=== PATIENT | male | born 1955 | race Caucasian/White ===

== ENCOUNTER 2016-11-12 17:29 | Inpatient (IN) | payer MEDICAID, MEDICARE, OTHER ==
[~2016-11-12] VITALS: Ht 172.7 cm; Wt 58.3 kg
[~2016-11-12 17:29] MED LIST: ACET500C5 PO; ARIP2TAB8 PO; BUDE9TAB PO; CEPH-443 PO; CIPR500T4 PO; ESCI20TA PO; IMO2 PO; METR500T PO; MTF1000T PO; OMEP20CA16 PO
[2016-11-12] MEDS ORDERED: DEXTROSE 50% 50 ML SYRINGE IV STA (17:35)
[2016-11-12] MEDS ORDERED: DEXTROSE 5%-0.9% NACL 1,000 ML IV STA (17:35)
[2016-11-12 18:18] LABS: BASOPHIL # 0.1 10^3/ul (0.0-0.1); BASOPHILS % 0.7 % (0.0-2.0); EOSINOPHILS % 0.1 % (0.0-7.0); HEMATOCRIT 37.5 % (42.0-52.0); HEMOGLOBIN 12.5 g/dl (14.0-18.0); LYMPHOCYTES # 0.9 10^3/ul (0.8-2.9); LYMPHOCYTES % 8.2 % (15.0-51.0); MEAN CORPUSCULAR HEMOGLOBIN 30.7 pg (29.0-33.0); MEAN CORPUSCULAR HGB CONC 33.4 g/dl (32.0-37.0); MEAN PLATELET VOLUME 7.4 fl (7.4-10.4); MONOCYTE # 0.6 10^3/ul (0.3-0.9); MONOCYTES % 5.5 % (0.0-11.0); NEUTROPHIL # 9.6 10^3/ul (1.6-7.5); NEUTROPHILS % 85.5 % (39.0-77.0); PLATELET COUNT 507 10^3/UL (140-440); RED BLOOD COUNT 4.08 10^6/ul (4.70-6.10); RED CELL DISTRIBUTION WIDTH 13.7 % (11.5-14.5); UNCORRECTED WBC 11.2 10^3/ul (4.8-10.8); WHITE BLOOD COUNT 11.2 10^3/ul (4.8-10.8)
[2016-11-12 18:24] LABS: CONDITION 1
[2016-11-12] MEDS ORDERED: QUET50TA22 PO (18:49)
[2016-11-12] MEDS ORDERED: PRED10TA PO (18:50)
[2016-11-12] MEDS ORDERED: LORA1TAB PO (18:50)
[2016-11-12] MEDS ORDERED: METF500T4 PO (18:51)
[2016-11-12] MEDS ORDERED: GLIM2TAB PO (18:51)
[2016-11-12] MEDS ORDERED: MESA0.372 PO (18:52)
[2016-11-12] MEDS ORDERED: ALBU18HF INHALATION (18:53)
[2016-11-12 19:19] LABS: CHLORIDE 99 mmol/L (97-110)
[2016-11-12 19:20] LABS: POTASSIUM 3.7 mmol/L (3.5-5.1); SODIUM 139 mmol/L (135-144)
[2016-11-12 19:22] LABS: CREATININE 0.97 mg/dl (0.61-1.24)
[2016-11-12 19:23] LABS: ANION GAP 16 (8-16); BLOOD UREA NITROGEN 24 mg/dl (7-20); CARBON DIOXIDE 28 mmol/L (21-31); GLUCOSE 70 mg/dl (70-220)
[2016-11-12 19:34] LABS: TROPONIN-I < 0.012 ng/ml (0.00-0.12)
--- NOTE | 2016-11-12 20:52 | ERD ---
ER Documentation Chief Complaint Date/Time DATE: 11/12/16 TIME: 20:50 Chief Complaint R39 FROM [facility], LOW BLOOD SUGAR 37 HPI Patient is a 61-year-old male with diabetes who presents with low blood sugar. The patient was given glucagon and juice by paramedics but is still hypoglycemic. The patient was brought in by ambulance. The patient came from a [facility] facility. The patient says that he has had "diarrhea for a long time". He has no other complaints. Upon review of old medical records this is the patient's fourth visit to the ER since 2014. He does not know the name of his primary doctor. ROS All systems reviewed and are negative except as per history of present illness. Medications Home Meds Reported Medications Albuterol Sulfate* (Ventolin HFA*) 18 Gm Hfa.aer.ad, 2 PUFF INHALATION Q4H, #1 INHALER 11/12/16 Mesalamine* (Apriso*) 0.375 Gm Cap.sr.24h, 1.5 GM PO BID, CAP 11/12/16 Glimepiride* (Glimepiride*) 2 Mg Tablet, 2 MG PO WITH BREAKFAST, TAB 11/12/16 Metformin* (Glucophage*) 500 Mg Tab, 500 MG PO WITH LUNCH DINNER, #60 TAB 11/12/16 Prednisone* (Prednisone*) 10 Mg Tab, 10 MG PO DAILY, TAB 11/12/16 Lorazepam* (Lorazepam*) 1 Mg Tablet, 1 MG PO HS Y for ANXIETY, #30 TAB 11/12/16 Quetiapine Fumarate* (Quetiapine Fumarate*) 50 Mg Tablet, 50 MG PO HS, TAB 11/12/16 Escitalopram Oxalate* (Lexapro*) 20 Mg Tablet, 20 MG PO QPM, TAB 08/14/15 Discontinued Reported Medications Loperamide Hcl* (Loperamide Hcl*) 2 Mg Cap, 2 MG PO TID Y for DIARRHEA, CAP 08/24/15 Budesonide (UCERIS) 9 Mg Tabdr...er, 9 MG PO DAILY 08/14/15 Discontinued Scripts Cephalexin* (Keflex*) 500 Mg Capsule, 500 MG PO TID for 5 Days, CAP Prov:TAISHA MARIANO DO 11/28/15 Omeprazole* (Omeprazole*) 20 Mg Capsule.dr, 20 MG PO BID, #60 CAP Prov:NAGHDECHI,KENIA MD 08/25/15 Aripiprazole* (Abilify*) 2 Mg Tablet, 2 MG PO DAILY, #30 TAB Prov:KENIA JENNNIGS MD 08/25/15 Metformin* (Glucophage*) 1,000 Mg Tablet, 1000 MG PO BID, #60 TAB Prov:KENIA JENNINGS MD 08/25/15 Acetaminophen* (Tylophen*) 500 Mg Capsule, 500 MG PO Q6H Y for PAIN for 20 Days , TAB Prov:RAINA KAUR MD 08/19/15 Metronidazole* (Flagyl*) 500 Mg Tab, 500 MG PO Q8 for 8 Days Prov:RAINA KAUR MD 08/19/15 Ciprofloxacin Hcl* (Ciprofloxacin Hcl*) 500 Mg Tab, 500 MG PO BID@06,18 for 8 Days Prov:RAINA KAUR MD 08/19/15 Allergies Allergies: Coded Allergies: No Known Allergy (Unverified , 11/12/16) PMhx/Soc History of Surgery: No Anesthesia Reaction: No Hx Neurological Disorder: No Hx Respiratory Disorders: No Hx Cardiac Disorders: Yes (HTN) Hx Psychiatric Problems: Yes (depression) Hx Miscellaneous Medical Probl: Yes (ULCERATIVE COLITIS, DIABETES) Hx Alcohol Use: No Hx Substance Use: No Hx Tobacco Use: Yes Smoking Status: Current every day smoker FmHx Family History: No diabetes Physical Exam Vitals Vital Signs Date Time Temp Pulse Resp B/P Pulse Ox O2 Delivery O2 Flow Rate FiO2 11/12/16 18:22 66 18 125/80 100 Room Air 11/12/16 18:00 98.7 63 18 125/79 100 Physical Exam Const: Confused Head: Atraumatic Eyes: Normal Conjunctiva ENT: Normal External Ears, Nose and Mouth. Neck: Full range of motion..~ No meningismus. Resp: Clear to auscultation bilaterally Cardio: Regular rate and rhythm, no murmurs Abd: Soft, non tender, non distended. Normal bowel sounds Skin: No petechiae or rashes Back: No midline or flank tenderness Ext: No cyanosis, or edema Neur: Awake but confused Result Diagram: 11/12/16 2396 11/12/16 4866 Results 24 hrs Laboratory Tests Test 11/12/16 17:34 11/12/16 17:56 11/12/16 18:21 Bedside Glucose 41mg/dL 111mg/dL Anion Gap 16 Basophils # 0.110^3/ul Basophils % 0.7% Blood Morphology Comment Blood Urea Nitrogen 24mg/dl Calcium Level 9.0mg/dl Carbon Dioxide Level 28mmol/L Chloride Level 99mmol/L Creatinine 0.97mg/dl Eosinophils # 0.010^3/ul Eosinophils % 0.1% Glucose Level 70mg/dl Hematocrit 37.5% Hemoglobin 12.5g/dl Lymphocytes # 0.910^3/ul Lymphocytes % 8.2% Mean Corpuscular Hemoglobin 30.7pg Mean Corpuscular Hemoglobin Concent 33.4g/dl Mean Corpuscular Volume 92.0fl Mean Platelet Volume 7.4fl Monocytes # 0.610^3/ul Monocytes % 5.5% Neutrophils # 9.610^3/ul Neutrophils % 85.5% Nucleated Red Blood Cells # 0.010^3/ul Nucleated Red Blood Cells % 0.0/100WBC Platelet Count 99429^3/UL Potassium Level 3.7mmol/L Red Blood Count 4.0810^6/ul Red Cell Distribution Width 13.7% Sodium Level 139mmol/L Troponin I < 0.012ng/ml White Blood Count 11.210^3/ul Current Medications Medications (Trade) Dose Ordered Sig/Yung Route PRN Reason Start Time Stop Time Status Last Admin Dose Admin Dextrose 50 ml 50 ml ONCE STAT IV 11/12/16 17:35 11/12/16 17:37 DC 11/12/16 17:57 Dextrose/Sodium Chloride (D5-NS) 1,000 ml @ 200 mls/hr Q5H STAT IV 11/12/16 17:35 11/12/16 22:34 11/12/16 17:57 Ondansetron HCl (Zofran Inj) 4 mg BRIDGE ORDER PRN IV NAUSEA AND/OR VOMITING 11/12/16 21:00 11/13/16 20:59 Acetaminophen (Tylenol Tab) 650 mg ER BRIDGE PRN PO MILD PAIN/FEVER 11/12/16 21:00 11/13/16 20:59 Procedures/MDM EKG read by me: Rate/Rhythm: Right bundle branch block a rate of 62 Intervals: Normal Impression: Right bundle branch block without evidence of ischemia Patient is a 61-year-old male who presents with hypoglycemia. The patient is on metformin and glimepiride and I am concerned about persistent hypoglycemia given the oral hypoglycemics. The patient was still hypoglycemic even after juice and glucagon by paramedics. The patient will be admitted to the care of Dr. Kaur from the panel team as he has [employer] insurance. The patient will be admitted to a medical surgical bed. The patient understands the plan and is okay for admission at this time. At this point I see no signs of serious bacterial infection. Departure Diagnosis: Primary Impression: Hypoglycemia Additional Impression: Anemia Anemia type: unspecified type Qualified Code: D64.9 - Anemia, unspecified type Condition: DORI Butcher MD Nov 12, 2016 20:52
[2016-11-12] MEDS ORDERED: ACETAMINOPHEN 325 MG TAB PO PRN ×2 (21:00→23:30)
[2016-11-12] MEDS ORDERED: ONDANSETRON 4 MG INJ IV PRN ×2 (21:00→23:30)
[2016-11-12 22:10] VITALS: BP 129/75; PULSE 58; RESP 18
[2016-11-12 22:38] VITALS: Ht 172.7 cm; Wt 58.3 kg
[2016-11-12] MEDS ORDERED: MESALAMINE 1.5 GM XX SCH (23:30)
[2016-11-12] MEDS ORDERED: LORAZEPAM 1 MG TAB PO PRN (23:30)
[2016-11-12] MEDS ORDERED: ALBUTEROL HFA 8 GM INHALER INH PRN (23:30)
[2016-11-13] MEDS: ACCUCHECK XX SCH ×4 (00:35→18:20)
[2016-11-13 05:14] LABS: ALBUMIN 3.7 g/dl (3.3-4.9); POTASSIUM 3.9 mmol/L (3.5-5.1)
[2016-11-13 05:16] LABS: CREATININE 0.85 mg/dl (0.61-1.24)
[2016-11-13 05:17] LABS: ALBUMIN/GLOBULIN RATIO 1.02; BILIRUBIN,INDIRECT 0.1 mg/dl (0-1.1); BILIRUBIN,TOTAL 0.1 mg/dl (0.2-1.3); CALCIUM 9.1 mg/dl (8.4-10.2); TOTAL PROTEIN 7.3 g/dl (6.1-8.1)
[2016-11-13 05:32] LABS: BASOPHILS % 0.2 % (0.0-2.0); EOSINOPHILS # 0.1 10^3/ul (0.0-0.5); EOSINOPHILS % 0.9 % (0.0-7.0); HEMATOCRIT 40.8 % (42.0-52.0); HEMOGLOBIN 13.6 g/dl (14.0-18.0); LYMPHOCYTES # 0.8 10^3/ul (0.8-2.9); LYMPHOCYTES % 6.3 % (15.0-51.0); MEAN CORPUSCULAR HEMOGLOBIN 30.7 pg (29.0-33.0); MEAN CORPUSCULAR HGB CONC 33.4 g/dl (32.0-37.0); MEAN CORPUSCULAR VOLUME 91.9 fl (82.0-101.0); MEAN PLATELET VOLUME 7.6 fl (7.4-10.4); MONOCYTE # 0.4 10^3/ul (0.3-0.9); MONOCYTES % 3.4 % (0.0-11.0); NEUTROPHIL # 11.5 10^3/ul (1.6-7.5); NEUTROPHILS % 89.2 % (39.0-77.0); PLATELET COUNT 432 10^3/UL (140-440); RED BLOOD COUNT 4.44 10^6/ul (4.70-6.10); UNCORRECTED WBC 12.9 10^3/ul (4.8-10.8); WHITE BLOOD COUNT 12.9 10^3/ul (4.8-10.8)
[2016-11-13 06:11] LABS: CONDITION 1
--- NOTE | 2016-11-13 06:52 | HP ---
DATE OF ADMISSION: 11/12/2016 TIME SEEN: 2300 CHIEF COMPLAINT: Low blood sugar. HISTORY OF PRESENT ILLNESS: The patient is a 61-year-old male with a history of ulcerative colitis, diabetes, anemia of chronic disease, C. difficile colitis, depression, paranoia/delusion, urinary t ract infection and treatment/medication noncompliance who was sent from [facility] for a blood glucose of 37. The patient was given some juice and hamburger and subsequently his blood glucose shows some improvement. When EMS arrived, he was given Glucagon but he refused in sertion of IV an line. Currently, the patient does not have any complaint. He is oriented. Denied headache, visual disturbance, lightheadedness. Of note, the patient was admitted recently and he w as actually discharged by myself about 6 weeks ago after he initially presented with diarrhea. At t hat time, he refused a colonoscopy but infectious workup was positive for C. diff. He was treated w ith Flagyl and also was treated with mesalamine for his ulcerative colitis. He was also diagnosed w ith E. coli and urinary tract infection. His diarrhea improved prior to discharge, but did not comp letely resolve and that is probably in part due to the fact that he was noncompliant with his medica tion. When the patient presented to the ER today, his initial vitals were unremarkable. Laboratory value shows a WBC of 11.2, hemoglobin 12.5, platelet count 507. His initial point of care glucose was 41. He was given D50 and since then his blood glucose has been in the 70s. Note that the patie nt is on glimepiride and metformin for his diabetes. REVIEW OF SYSTEMS: Negative except as mentioned in HPI. PAST MEDICAL HISTORY: As per HPI. PAST SURGICAL HISTORY: Nose surgery and tonsillectomy. SOCIAL HISTORY: Positive for tobacco use and alcohol use. ALLERGIES: NO KNOWN DRUG ALLERGIES. HOME MEDICATIONS: 1. Albuterol. 2. Lexapro. 3. Ativan. 4. Seroquel. 5. Mesalamine. 6. Glimepiride. 7. Metformin. 8. Prednisone. PHYSICAL EXAMINATION: VITAL SIGNS: Stable. GENERAL: No acute distress, answering questions appropriately. HEENT: No obvious head deformity. Pupils are equal and reactive to light. Extraocular muscles int act. CARDIOVASCULAR: Regular rate and rhythm with no extra sounds. LUNGS: Clear. ABDOMEN: Soft, nontender, nondistended. Positive bowel sounds. EXTREMITIES: No edema. NEUROLOGIC: No focal deficits. LABORATORY: Pertinent positives as mentioned in the HPI. IMPRESSION: 1. Asymptomatic hypoglycemia, likely secondary to sulfonylurea. Currently improved. 2. History of ulcerative colitis. 3. History of recently diagnosed Clostridium difficile colitis diarrhea. H 4. History of diabetes. 5. History of depression. 6. History of noncompliance. PLAN: He is going to continue to be monitored, especially his blood glucose. He will be placed on IV fluids with dextrose. We will resume his diabetic diet. We will hold insulin and obviously his home oral diabetic medications. We will continue the rest of his home medication with adjustment as needed. Further workup and management per clinical course. Dictated By: RAINA DA SILVA/CARLOS Conf#: [id number] DID#: [id number]
[2016-11-13] MEDS ORDERED: DEXTROSE 50% 50 ML SYRINGE IV ONE (07:00)
[2016-11-13] MEDS ORDERED: DEXTROSE 5%-0.45% NACL 1,000 ML IV SCH (07:00)
[2016-11-13 08:31] VITALS: BP 134/76; RESP 20
[2016-11-13] MEDS: predniSONE 10 MG TAB PO SCH (08:50)
[2016-11-13 15:53] LABS: ADD UMIC YES; URINE BILIRUBIN (Dip) NEGATIVE (NEGATIVE); URINE BLOOD (Dip) 3+ (NEGATIVE); URINE COLOR LT. YELLOW (YELLOW); URINE KETONES (Dip) NEGATIVE (NEGATIVE); URINE LEUKOCYTE ESTERASE (Dip) 2+ (NEGATIVE); URINE NITRITE (Dip) NEGATIVE (NEGATIVE); URINE TOTAL PROTEIN (Dip) TRACE (NEGATIVE); URINE UROBILINOGEN (Dip) 0.2 E.U./dL (0.1-1.0)
[2016-11-13 16:12] LABS: BACTERIA,URINE MODERATE
[2016-11-13 19:54] VITALS: BP 112/72; RESP 18
[2016-11-13] MEDS ORDERED: NON-FORMULARY/PATIENT OWN MED (Quetiapine Fumarate* 50 MG) PO SCH (21:00)
[2016-11-13] MEDS: HEPARIN 5,000 UNIT/0.5 ML SYG SC SCH (21:00)
[2016-11-13] MEDS ORDERED: QUETIAPINE 25 MG TAB PO SCH (21:00)
[2016-11-13] MEDS ORDERED: ESCITALOPRAM 10 MG TAB PO SCH ×2 (21:00)
[2016-11-14] MEDS: ACCUCHECK XX SCH ×3 (05:56→12:00)
[2016-11-14] MEDS ORDERED: PANTOPRAZOLE (EC) 40 MG TAB PO SCH (06:00)
[2016-11-14 08:20] VITALS: BP 100/58; RESP 16
[2016-11-14] MEDS: predniSONE 10 MG TAB PO SCH (09:45)
[2016-11-14] MEDS: HEPARIN 5,000 UNIT/0.5 ML SYG SC SCH (09:56)
[2016-11-14 10:12] LABS: BASOPHILS % 0.1 % (0.0-2.0); EOSINOPHILS # 0.1 10^3/ul (0.0-0.5); HEMATOCRIT 33.8 % (42.0-52.0); HEMOGLOBIN 11.5 g/dl (14.0-18.0); LYMPHOCYTES # 0.8 10^3/ul (0.8-2.9); LYMPHOCYTES % 5.6 % (15.0-51.0); MEAN CORPUSCULAR HGB CONC 34.1 g/dl (32.0-37.0); MEAN CORPUSCULAR VOLUME 91.1 fl (82.0-101.0); MEAN PLATELET VOLUME 7.4 fl (7.4-10.4); MONOCYTE # 0.5 10^3/ul (0.3-0.9); MONOCYTES % 3.5 % (0.0-11.0); NEUTROPHIL # 13.5 10^3/ul (1.6-7.5); NEUTROPHILS % 89.8 % (39.0-77.0); PLATELET COUNT 391 10^3/UL (140-440); RED BLOOD COUNT 3.71 10^6/ul (4.70-6.10); RED CELL DISTRIBUTION WIDTH 13.7 % (11.5-14.5)
[2016-11-14 10:17] LABS: CONDITION 1
[2016-11-14 10:33] LABS: POTASSIUM 3.6 mmol/L (3.5-5.1)
[2016-11-14 10:35] LABS: CREATININE 0.95 mg/dl (0.61-1.24)
[2016-11-14 10:36] LABS: CALCIUM 8.6 mg/dl (8.4-10.2)
[2016-11-14] MEDS ORDERED: CEFTRIAXONE 1 GM/50 ML (PMX) 50 ML IVPB SCH (11:30)
[2016-11-14] MEDS ORDERED: CEPH-443 PO (12:52)
--- NOTE | 2016-11-14 12:52 | PDOCDIS ---
Discharge Instructions CONDITION Patient Condition: Fair HOME CARE INSTRUCTIONS: Special Diet: Low carb ACTIVITY: Activity Restrictions: Special Program FOLLOW UP/APPOINTMENTS Appointments Follow up with PCP in one week KENIA JENNINGS MD Nov 14, 2016 12:52
[2016-11-14] MEDS ORDERED: DEXTROSE 50% 50 ML SYRINGE IV PRN ×2 (13:00)
[2016-11-14] MEDS ORDERED: GLUCOSE GEL 15 GRAM TUBE BUCCAL PRN (13:00)
[2016-11-14] MEDS ORDERED: GLUCAGON 1 MG INJ IM PRN (13:00)
[2016-11-14] MEDS ORDERED: GLUCOSE GEL 15 GRAM TUBE PO PRN ×2 (13:00)
[2016-11-14] MEDS ORDERED: LEVOFLOXACIN 500 MG TAB PO ONE (13:30)
[2016-11-14] MEDS ORDERED: MUPIROCIN 2% 15 GM CR TOP SCH (15:00)
[2016-11-14] MEDS ORDERED: INSULIN ASPART [NOVOLOG] 3 ML PEN SC SCH (17:55)
--- NOTE | 2016-11-14 22:30 | DS ---
DATE OF ADMISSION: 11/12/2016 DATE OF DISCHARGE: 11/14/2016 [employer] MANAGER: extension educator. DISCHARGE DIAGNOSES: 1. Asymptomatic hypoglycemia likely secondary to sulfonylurea. Discontinue sulfonylurea. The rob ent will be continued on metformin. 2. History of ulcerative colitis. Continue home medication. 3. History of diabetes mellitus, well controlled at this time on metformin. 4. History of depression/major depression. Continue Lexapro. 5. Urinary tract infection status post Rocephin, discharged on Keflex. 6. Facial cellulitis, on clindamycin ointment. 7. Anxiety. Continue lorazepam. DISCHARGE MEDICATIONS: 1. Metformin 500 mg 1 tab p.o. b.i.d. 2. Keflex 500 mg 1 tab p.o. t.i.d., #18. 3. Clindamycin ointment to the face area b.i.d. 4. Tylenol 325 mg. 5. Albuterol sulfate p.r.n. 6. Lexapro 20 mg. 7. Lorazepam 1 mg. 8. Protonix 40 mg. 9. Prednisone 10 mg. 10. Seroquel 50 mg. 11. Mesalamine 1.5 gram. ACTIVITY: Ambulate with assistance. PT, OT evaluate and treat. DIET: Low carbohydrate diet. DISPOSITION: To [facility]. The patient resides at [facility] at [address] [place] [address]. Phone number [phone]. The patient's PCP, Dr. Bobo Moses, phone number [phone], fax number [phone]. HOSPITAL COURSE: This is a 61-year-old gentleman with past medical history of ulcerative colitis, d iabetes mellitus, anemia of chronic disease, C. difficile colitis, depression, paranoia, delusion, a nd urinary tract infection with noncompliance with medical treatment and medication who was sent fro [facility] facility for blood glucose of 37. The patient was given some juice and hamburger and subsequently his blood glucose improved. When EMS arrived, the patient was given Gluc agon. He refused insertion of IV line. The patient did not have any complaints at the time. When he was brought into the emergency room, he was awake, alert, oriented. No headache, visual disturba nce, lightheadedness. The patient was discharged about 6 days ago, initially with diarrhea. At [facility] t time, the patient refused colonoscopy, but an infection workup was positive for C. diff. He was t reated with Flagyl was also treated with mesalamine for ulcerative colitis. The patient was also di agnosed with E. coli urinary tract infection. The diarrhea had improved prior to discharge. It had not completely resolved, but it was partly due to the fact that he is noncompliant with his medicat ion. Upon admission, the patient's WBC was 11.2, hemoglobin 12.5, hematocrit normal, platelets 507. Blood glucose 41. He was given D50. This is likely secondary to patient has been on glyburide an d metformin. The patient was on the time of the last discharge, was instructed to discontinue glime piride, but also he has been continuing that medication. Upon arrival to emergency room, the patien fidencio was started on D5 normal saline. He has been continued on prednisone secondary to his history of ulcerative colitis. Regarding his hypoglycemia, his glucose has been improving significantly. He w as seen and evaluated by agricultural extension educator, which she agreed the patient should discontinue his sulf onylurea. The patient's hemoglobin A1c was found to be normal at 5.1. In regard to his depression, he was continued on Lexapro. For his history of delusion and mood disorder, he was continued on Se roquel. At this time, the patient's blood glucose has been ranging between 107 to 164. The rest of the BMP is normal with sodium 140, potassium 3.6, chloride 104, bicarbonate 24, BUN 20, creatinine 0.95, glucose 164, calcium 8.6. WBC 15, hemoglobin 11.5, hematocrit 33.8, platelets of 391. The heron ladd was found to have urinary tract infection at the time of admission, for which he was positive for leukocyte esterase, greater than 200 WBC, and was treated with a dose of Rocephin and will disch arge on Keflex. He has history of E. coli in the urine, although his vitals are stable. He is afeb rile with temperature 98.8, pulse 82, respirations 16, blood pressure 112/77 to 100/50, oxygen 92% t o 95% in room air. CONDITION AT TIME OF DISCHARGE: Stable. Dictated By: KENIA JENNINGS MD PN/NTS Conf#: [id number] [facility]#: [id number] CC: [facility]; RAINA KAUR MD;*End*
[2016-11-15] MEDS ORDERED: ACCUCHECK XX SCH (02:00)
== END 2016-11-14 17:00 | disposition home or self-care (01) | DRG 638 ==
LOC: E/R 17:29 → MS1 20:42
PROVIDERS: ADMIT Internal Medicine; ATTEND Internal Medicine
DX: E11.649 Type 2 diabetes mellitus with hypoglycemia without coma (principal); L03.211 Cellulitis of face; F32.9 Major depressive disorder, single episode, unspecified; T38.3X5A Adverse effect of insulin and oral hypoglycemic [antidiabetic] drugs, initial encounter; D64.9 Anemia, unspecified; F17.200 Nicotine dependence, unspecified, uncomplicated; Z87.19 Personal history of other diseases of the digestive system; Z79.84 Long term (current) use of oral hypoglycemic drugs; F41.9 Anxiety disorder, unspecified; Z86.79 Personal history of other diseases of the circulatory system; Z87.440 Personal history of urinary (tract) infections; Z91.14 Patient's other noncompliance with medication regimen
CPT/HCPCS: 36415; 80048; 80053; 81001; 81003; 82962; 83036; 84484; 85025; 87081; 93005; 96374; J0696; J1815; J7042; J7512

== ENCOUNTER 2018-02-17 23:12 | Inpatient (IN) | END 2018-02-21 15:29 | disposition hospice, home (50) | DRG 871 ==